=== PATIENT | female | born 1950 | race Caucasian/White ===

== ENCOUNTER 2021-08-30 04:55 | Day surgery (SDC) | payer OTHER ==
[2021-08-25 12:25] VITALS: BMI 32.8
[2021-08-30] MEDS ORDERED: MIDAZOLAM HCL 2 MG/2 ML SINGLE DOSE VIAL ONE (09:03)
[2021-08-30] MEDS ORDERED: FENTANYL CITRATE/PF 50 MCG/ML VIAL ONE (09:03)
[2021-08-30] MEDS ORDERED: ACETAMINOPHEN 325 MG TABLET (FP) ONE (11:04)
[2021-08-30 13:17] VITALS: BP 143/71; PULSE 67; TEMP 98.8
== END 2021-08-30 13:10 | disposition home or self-care (01) ==
LOC: JRADIR 04:55
PROVIDERS: ATTEND Internal Medicine Hematology & Oncology
PROC: 02HV33Z Insertion of Infusion Device into Superior Vena Cava, Percutaneous Approach (ICD-10-PCS; principal; 2021-08-30)
PROC: B548ZZA Ultrasonography of Superior Vena Cava, Guidance (ICD-10-PCS; 2021-08-30)
DX: C81.90 Hodgkin lymphoma, unspecified, unspecified site (principal)
CPT/HCPCS: 36561; C1788; 77001-TC-FY; 82962

== ENCOUNTER 2021-08-31 07:26 | Day surgery (SDC) | payer OTHER ==
[2021-08-31] MEDS ORDERED: SODIUM CHLORIDE 250 ML IV ONE (09:30)
[2021-08-31] MEDS ORDERED: ACETAMINOPHEN 325 MG TABLET (FP) PO ONE (10:00)
[2021-08-31] MEDS ORDERED: FOSAPREPITANT DIMEGLUMINE 150 MG in SODIUM CHLORIDE 145 ML IVPB ONE (10:00)
[2021-08-31] MEDS ORDERED: diphenhydrAMINE HCL 25 MG CAPSULE (FP) PO ONE (10:00)
[2021-08-31] MEDS ORDERED: PALONOSETRON HCL 0.25 MG/5 ML VIAL IVPUSH ONE (10:00)
[2021-08-31] MEDS ORDERED: BLEOMYCIN SULFATE 15 UNIT VIAL ID ONE (10:00)
[2021-08-31] MEDS ORDERED: DEXAMETHASONE SODIUM PHOSPHATE 10 MG in SODIUM CHLORIDE 50 ML IVPB ONE (10:00)
[2021-08-31] MEDS ORDERED: DOXOrubicin HCL 50 MG/25 ML VIAL IV ONE (10:30)
[2021-08-31] MEDS ORDERED: BLEOMYCIN SULFATE 17 UNIT in SODIUM CHLORIDE 50 ML IVPB ONE (11:00)
[2021-08-31] MEDS ORDERED: VINBLASTINE SULFATE IVPB ONE (11:15)
[2021-08-31] MEDS ORDERED: SODIUM CHLORIDE IVPB ONE (11:15)
[2021-08-31] MEDS ORDERED: DACARBAZINE IVPB ONE (11:30)
[2021-08-31] MEDS ORDERED: WATER IVPB ONE (11:30)
[2021-08-31] MEDS ORDERED: DEXTROSE 5% IVPB ONE (11:30)
[2021-08-31] MEDS ORDERED: BLEOMYCIN SULFATE 15 UNIT VIAL SQ ONE (12:00)
[2021-08-31 12:55] LABS: BASO % 0.3 % (0-2.0); EOS % 1.5 % (0-4.5); HEMATOCRIT 37.2 % (32.4-45.2); HEMOGLOBIN 12.7 GM/dL (10.7-15.3); LYMPH % 11.8 % (8-40); MCH 30.2 pg (25.7-33.7); MCHC 34.2 g/dl (32.0-36.0); MEAN CELL VOLUME 88.3 fl (80-96); MEAN PLT VOLUME 8.9 fl (7.5-11.1); MONO % 3.3 % (3.8-10.2); NEUT % 83.1 % (42.8-82.8); PLATELET COUNT 227 10^3/uL (134-434); RBC 4.22 M/mm3 (3.60-5.2); RDW 13.3 % (11.6-15.6); WHITE BLOOD COUNT 7.1 K/mm3 (4.0-10.0)
[2021-08-31 13:13] LABS: CALCIUM 9.2 mg/dL (8.5-10.1)
[2021-08-31 13:14] LABS: ALBUMIN 3.8 g/dl (3.4-5.0); BLOOD UREA NITROGEN 14.6 mg/dL (7-18)
[2021-08-31 13:16] LABS: CREATININE 0.7 mg/dL (0.55-1.3); URIC ACID 5.4 mg/dL (2.6-7.2)
[2021-08-31 13:18] LABS: BILIRUBIN,TOTAL 0.5 mg/dL (0.2-1); TOT PROT 6.6 g/dl (6.4-8.2)
[2021-08-31 17:20] VITALS: TEMP 97.7
[2021-08-31] MEDS ORDERED: PORTA CATH FLUSH 10 ML IVPUSH PRN (17:44)
[2021-08-31 17:55] VITALS: BP 176/70; PULSE 63
== END 2021-08-31 16:00 | disposition home or self-care (01) ==
LOC: JONCCHEMO 07:26
PROVIDERS: ATTEND Internal Medicine Hematology & Oncology
PROC: 3E04305 Introduction of Other Antineoplastic into Central Vein, Percutaneous Approach (ICD-10-PCS; principal; 2021-08-31)
PROC: 3E01305 Introduction of Other Antineoplastic into Subcutaneous Tissue, Percutaneous Approach (ICD-10-PCS; 2021-08-31)
PROC: 3E043GC Introduction of Other Therapeutic Substance into Central Vein, Percutaneous Approach (ICD-10-PCS; 2021-08-31)
PROC: 3E0437Z Introduction of Electrolytic and Water Balance Substance into Central Vein, Percutaneous Approach (ICD-10-PCS; 2021-08-31)
PROC: 3E0337Z Introduction of Electrolytic and Water Balance Substance into Peripheral Vein, Percutaneous Approach (ICD-10-PCS; 2021-08-31)
DX: Z51.11 Encounter for antineoplastic chemotherapy (principal); C81.90 Hodgkin lymphoma, unspecified, unspecified site
CPT/HCPCS: 36415; 80053; 83615; 84550; 85025; 96367; 96375; 96402; 96411; 96413; J1453; J2469; J9040; J9130

== ENCOUNTER 2021-09-01 08:16 | Day surgery (SDC) | payer OTHER ==
[2021-09-01] MEDS ORDERED: PEGFILGRASTIM-CBQV (UDENYCA) 6 MG/0.6 ML SYRINGE SQ ONE (10:00)
[2021-09-01] MEDS ORDERED: D5-1/2NS+40 MEQ KCL - 20 MEQ/500 ML INFUS.BAG IV ONE (10:00)
[2021-09-01] MEDS ORDERED: MAGNESIUM 1GM/D5W - 1 GM/100 ML IVPB IVPB ONE (10:00)
[2021-09-01 16:48] VITALS: BP 163/68; PULSE 61; TEMP 97.7
[2021-09-01] MEDS ORDERED: PORTA CATH FLUSH 10 ML IVPUSH PRN (16:48)
== END 2021-09-01 16:00 | disposition home or self-care (01) ==
LOC: JONCCHEMO 08:16
PROVIDERS: ATTEND Internal Medicine Hematology & Oncology
PROC: 3E033GC Introduction of Other Therapeutic Substance into Peripheral Vein, Percutaneous Approach (ICD-10-PCS; principal; 2021-09-01)
PROC: 3E0337Z Introduction of Electrolytic and Water Balance Substance into Peripheral Vein, Percutaneous Approach (ICD-10-PCS; 2021-09-01)
PROC: 3E013GC Introduction of Other Therapeutic Substance into Subcutaneous Tissue, Percutaneous Approach (ICD-10-PCS; 2021-09-01)
DX: Z76.89 Persons encountering health services in other specified circumstances (principal); C81.90 Hodgkin lymphoma, unspecified, unspecified site
CPT/HCPCS: 96361; 96365; 96372; Q5111

== ENCOUNTER 2021-09-14 07:28 | Day surgery (SDC) | payer OTHER ==
[2021-09-14] MEDS ORDERED: SODIUM CHLORIDE 250 ML IV ONE (09:00)
[2021-09-14] MEDS ORDERED: diphenhydrAMINE HCL 25 MG CAPSULE (FP) PO ONE (09:30)
[2021-09-14] MEDS ORDERED: DEXAMETHASONE SODIUM PHOSPHATE 8 MG in SODIUM CHLORIDE 50 ML IVPB ONE (09:30)
[2021-09-14] MEDS ORDERED: FOSAPREPITANT DIMEGLUMINE 150 MG in SODIUM CHLORIDE 145 ML IVPB ONE (09:30)
[2021-09-14] MEDS ORDERED: PALONOSETRON HCL 0.25 MG/5 ML VIAL IVPUSH ONE (09:30)
[2021-09-14] MEDS ORDERED: ACETAMINOPHEN 325 MG TABLET (FP) PO ONE (09:30)
[2021-09-14] MEDS ORDERED: DOXOrubicin HCL 50 MG/25 ML VIAL IV ONE (10:00)
[2021-09-14] MEDS ORDERED: BLEOMYCIN SULFATE IVPB ONE (10:15)
[2021-09-14] MEDS ORDERED: SODIUM CHLORIDE IVPB ONE ×2 (10:15→10:30)
[2021-09-14] MEDS ORDERED: VINBLASTINE SULFATE IVPB ONE (10:30)
[2021-09-14] MEDS ORDERED: DACARBAZINE IVPB ONE (10:45)
[2021-09-14] MEDS ORDERED: DEXTROSE 5% IVPB ONE (10:45)
[2021-09-14] MEDS ORDERED: WATER IVPB ONE (10:45)
[2021-09-14 17:25] VITALS: TEMP 98.2
[2021-09-14 17:30] VITALS: BP 145/65; PULSE 69
[2021-09-14] MEDS ORDERED: PORTA CATH FLUSH 10 ML IVPUSH PRN (17:30)
== END 2021-09-14 15:10 | disposition home or self-care (01) ==
LOC: JONCCHEMO 07:28
PROVIDERS: ATTEND Internal Medicine Hematology & Oncology
DX: Z51.11 Encounter for antineoplastic chemotherapy (principal); C81.90 Hodgkin lymphoma, unspecified, unspecified site
CPT/HCPCS: 36415; 83735; 96367; 96375; 96411; 96413; J1453; J2469; J9040; J9130

== ENCOUNTER 2021-09-15 07:50 | Day surgery (SDC) | payer OTHER ==
[2021-09-15] MEDS ORDERED: D5-1/2NS+40 MEQ KCL - 20 MEQ/500 ML INFUS.BAG IV ONE (09:00)
[2021-09-15] MEDS ORDERED: PEGFILGRASTIM-CBQV (UDENYCA) 6 MG/0.6 ML SYRINGE SQ ONE (10:00)
[2021-09-15] MEDS ORDERED: MAGNESIUM 1GM/D5W - 1 GM/100 ML IVPB IVPB ONE (10:00)
[2021-09-15] MEDS ORDERED: POTASSIUM CHLORIDE 20 MEQ, MAGNESIUM SULFATE 1 GM in DEXTROSE 5%-0.45% SALINE - 500 ML IV ONE (10:00)
[2021-09-15 16:55] VITALS: TEMP 97.9
[2021-09-15] MEDS ORDERED: PORTA CATH FLUSH 10 ML IVPUSH PRN (16:55)
[2021-09-15 19:03] VITALS: BP 143/69; PULSE 67
== END 2021-09-15 17:40 | disposition home or self-care (01) ==
LOC: JONCCHEMO 07:50
PROVIDERS: ATTEND Internal Medicine Hematology & Oncology
PROC: 3E043GC Introduction of Other Therapeutic Substance into Central Vein, Percutaneous Approach (ICD-10-PCS; principal; 2021-09-15)
PROC: 3E013GC Introduction of Other Therapeutic Substance into Subcutaneous Tissue, Percutaneous Approach (ICD-10-PCS; 2021-09-15)
DX: C81.90 Hodgkin lymphoma, unspecified, unspecified site (principal); Z76.89 Persons encountering health services in other specified circumstances
CPT/HCPCS: 96361; 96365; 96372; Q5111

== ENCOUNTER → 2021-09-28 | Day surgery (SDC) | payer OTHER ==
[~2021-09-28] MED LIST: ACETAMINOPHEN 325 MG TABLET (FP) PO ONE; BLEOMYCIN SULFATE IVPB ONE; DACARBAZINE IVPB ONE; DEXAMETHASONE SODIUM PHOSPHATE 8 MG in SODIUM CHLORIDE 50 ML IVPB ONE; DEXTROSE 5% IVPB ONE; DOXOrubicin HCL 50 MG/25 ML VIAL IV ONE; FOSAPREPITANT DIMEGLUMINE 150 MG in SODIUM CHLORIDE 145 ML IVPB ONE; INSULIN (NOVOLOG) ASPART 100 UNITS/ML 10ML VIAL SQ ONE; MAGNESIUM 1GM/D5W - 1 GM/100 ML IVPB IVPB ONE; MAGNESIUM SULF 50% (8.12 MEQ/2 ML-1 GM VIAL) IVPB ONE; PALONOSETRON HCL 0.25 MG/5 ML VIAL IVPUSH ONE; PORTA CATH FLUSH 10 ML IVPUSH PRN; SODIUM CHLORIDE 250 ML IV ONE; SODIUM CHLORIDE IVPB ONE; VINBLASTINE SULFATE IVPB ONE; WATER IVPB ONE; diphenhydrAMINE HCL 25 MG CAPSULE (FP) PO ONE
[2021-09-28 10:51] LABS: HEMATOCRIT 35.6 % (32.4-45.2); HEMOGLOBIN 12.1 GM/dL (10.7-15.3); MCH 29.6 pg (25.7-33.7); MEAN PLT VOLUME 8.4 fl (7.5-11.1); PLATELET COUNT 220 10^3/uL (134-434); RBC 4.09 M/mm3 (3.60-5.2); RDW 13.7 % (11.6-15.6); WHITE BLOOD COUNT 12.9 K/mm3 (4.0-10.0)
[2021-09-28 11:23] LABS: CALCIUM 9.4 mg/dL (8.5-10.1)
[2021-09-28 11:24] LABS: ALBUMIN 3.9 g/dl (3.4-5.0); BLOOD UREA NITROGEN 15.6 mg/dL (7-18); MAGNESIUM 1.7 mg/dL (1.8-2.4)
[2021-09-28 11:26] LABS: BILIRUBIN,DIRECT 0.1 mg/dL (0.0-0.2)
[2021-09-28 11:27] LABS: CREATININE 0.8 mg/dL (0.55-1.3)
[2021-09-28 11:28] LABS: TOT PROT 6.7 g/dl (6.4-8.2)
[2021-09-28 11:29] LABS: BILIRUBIN,TOTAL 0.3 mg/dL (0.2-1)
[2021-09-28 11:44] LABS: ANISOCYTOSIS 0; MACROCYTOSIS 0
[2021-09-28 19:05] VITALS: TEMP 97.8
[2021-09-28 19:13] VITALS: BP 129/62; PULSE 71; RESP 20
== END | disposition home or self-care (01) ==
LOC: JONCCHEMO 06:17
PROVIDERS: ATTEND Internal Medicine Hematology & Oncology
DX: Z51.11 Encounter for antineoplastic chemotherapy (principal); C81.90 Hodgkin lymphoma, unspecified, unspecified site; I10 Essential (primary) hypertension; E61.2 Magnesium deficiency
CPT/HCPCS: 36415; 80048; 80076; 83615; 83735; 84550; 85025; 96366; 96367; 96375; 96411; 96413; J1453; J2469; J9040; J9130

== ENCOUNTER 2021-09-29 06:56 | Day surgery (SDC) | payer OTHER ==
[2021-09-29] MEDS ORDERED: D5-1/2NS+40 MEQ KCL - 20 MEQ/500 ML INFUS.BAG IV ONE (09:00)
[2021-09-29] MEDS ORDERED: PEGFILGRASTIM-CBQV (UDENYCA) 6 MG/0.6 ML SYRINGE SQ ONE (10:00)
[2021-09-29] MEDS ORDERED: MAGNESIUM 1GM/D5W - 1 GM/100 ML IVPB IVPB ONE (10:00)
[2021-09-29 15:25] VITALS: RESP 18; TEMP 98.6
[2021-09-29] MEDS ORDERED: PORTA CATH FLUSH 10 ML IVPUSH PRN (15:27)
[2021-09-29 15:36] VITALS: BP 147/68; PULSE 64
== END 2021-09-29 15:30 | disposition home or self-care (01) ==
LOC: JONCCHEMO 06:56
PROVIDERS: ATTEND Internal Medicine Hematology & Oncology
PROC: 3E043GC Introduction of Other Therapeutic Substance into Central Vein, Percutaneous Approach (ICD-10-PCS; principal; 2021-09-29)
DX: C81.90 Hodgkin lymphoma, unspecified, unspecified site (principal); I10 Essential (primary) hypertension; E61.2 Magnesium deficiency; Z76.89 Persons encountering health services in other specified circumstances
CPT/HCPCS: 96365; 96372; Q5111

== ENCOUNTER 2021-10-12 06:27 | Day surgery (SDC) | payer OTHER ==
[2021-10-12] MEDS ORDERED: diphenhydrAMINE HCL 25 MG CAPSULE (FP) PO ONE (10:00)
[2021-10-12] MEDS ORDERED: DEXAMETHASONE SODIUM PHOSPHATE 6 MG in SODIUM CHLORIDE 50 ML IVPB ONE (10:00)
[2021-10-12] MEDS ORDERED: SODIUM CHLORIDE 250 ML IV ONE (10:00)
[2021-10-12] MEDS ORDERED: ACETAMINOPHEN 325 MG TABLET (FP) PO ONE (10:00)
[2021-10-12] MEDS ORDERED: FOSAPREPITANT DIMEGLUMINE 150 MG in SODIUM CHLORIDE 145 ML IVPB ONE (10:00)
[2021-10-12] MEDS ORDERED: PALONOSETRON HCL 0.25 MG/5 ML VIAL IVPUSH ONE (10:00)
[2021-10-12] MEDS ORDERED: DOXOrubicin HCL 50 MG/25 ML VIAL IV ONE (10:30)
[2021-10-12] MEDS ORDERED: BLEOMYCIN SULFATE IVPB ONE (11:00)
[2021-10-12] MEDS ORDERED: SODIUM CHLORIDE IVPB ONE ×2 (11:00→11:15)
[2021-10-12] MEDS ORDERED: VINBLASTINE SULFATE IVPB ONE (11:15)
[2021-10-12 11:17] LABS: HEMATOCRIT 33.8 % (32.4-45.2); HEMOGLOBIN 11.6 GM/dL (10.7-15.3); MCH 29.8 pg (25.7-33.7); MCHC 34.4 g/dl (32.0-36.0); MEAN CELL VOLUME 86.8 fl (80-96); MEAN PLT VOLUME 8.4 fl (7.5-11.1); PLATELET COUNT 267 10^3/uL (134-434); RDW 14.1 % (11.6-15.6); WHITE BLOOD COUNT 16.1 K/mm3 (4.0-10.0)
[2021-10-12 11:30] LABS: CALCIUM 9.5 mg/dL (8.5-10.1); MAGNESIUM 1.4 mg/dL (1.8-2.4)
[2021-10-12] MEDS ORDERED: DACARBAZINE IVPB ONE (11:30)
[2021-10-12] MEDS ORDERED: DEXTROSE 5% IVPB ONE (11:30)
[2021-10-12] MEDS ORDERED: WATER IVPB ONE (11:30)
[2021-10-12 11:32] LABS: ALBUMIN 3.8 g/dl (3.4-5.0); BLOOD UREA NITROGEN 14.4 mg/dL (7-18)
[2021-10-12 11:34] LABS: BILIRUBIN,DIRECT 0.1 mg/dL (0.0-0.2); CREATININE 0.8 mg/dL (0.55-1.3); URIC ACID 5.7 mg/dL (2.6-7.2)
[2021-10-12 11:36] LABS: TOT PROT 6.6 g/dl (6.4-8.2)
[2021-10-12 11:37] LABS: BILIRUBIN,TOTAL 0.2 mg/dL (0.2-1)
[2021-10-12] MEDS ORDERED: MAGNESIUM SULF 50% (8.12 MEQ/2 ML-1 GM VIAL) IVPB ONE (11:41)
[2021-10-12] MEDS ORDERED: MAGNESIUM SULFATE IN WATER 2 GM/50 ML IVPB IVPB ONE (12:00)
[2021-10-12 12:34] LABS: ANISOCYTOSIS 0; MACROCYTOSIS 0
[2021-10-12 17:23] VITALS: RESP 18; TEMP 98.2
[2021-10-12] MEDS ORDERED: PORTA CATH FLUSH 10 ML IVPUSH PRN (17:43)
[2021-10-12 17:44] VITALS: BP 129/90; PULSE 75
== END 2021-10-12 17:40 | disposition home or self-care (01) ==
LOC: JONCCHEMO 06:27
PROVIDERS: ATTEND Internal Medicine Hematology & Oncology
DX: Z51.11 Encounter for antineoplastic chemotherapy (principal); C81.90 Hodgkin lymphoma, unspecified, unspecified site
CPT/HCPCS: 36415; 80048; 80076; 83615; 83735; 84550; 85025; 96367; 96375; 96411; 96413; J1453; J2469; J9040; J9130

== ENCOUNTER 2021-10-13 07:55 | Day surgery (SDC) | payer OTHER ==
[2021-10-13] MEDS ORDERED: POTASSIUM CHLORIDE 20 MEQ, MAGNESIUM SULFATE 1 GM in DEXTROSE 5%-0.45% SALINE - 500 ML IVPB ONE (10:00)
[2021-10-13] MEDS ORDERED: D5-1/2NS+40 MEQ KCL - 20 MEQ/500 ML INFUS.BAG IV ONE (10:00)
[2021-10-13] MEDS ORDERED: MAGNESIUM 1GM/D5W - 1 GM/100 ML IVPB IVPB ONE (10:00)
[2021-10-13 17:02] VITALS: TEMP 97.8
[2021-10-13] MEDS ORDERED: PORTA CATH FLUSH 10 ML IVPUSH PRN (17:02)
[2021-10-13 17:09] VITALS: BP 166/82; PULSE 70; RESP 20
== END 2021-10-13 11:45 | disposition home or self-care (01) ==
LOC: JONCCHEMO 07:55
PROVIDERS: ATTEND Internal Medicine Hematology & Oncology
PROC: 3E043GC Introduction of Other Therapeutic Substance into Central Vein, Percutaneous Approach (ICD-10-PCS; principal; 2021-10-13)
DX: C81.90 Hodgkin lymphoma, unspecified, unspecified site (principal); Z76.89 Persons encountering health services in other specified circumstances
CPT/HCPCS: 96361; 96365

== ENCOUNTER 2021-10-21 09:38 | Day surgery (SDC) | payer OTHER ==
[2021-10-21] MEDS ORDERED: MAGNESIUM SULFATE IN WATER 2 GM/50 ML IVPB IVPB ONE (12:00)
[2021-10-21 12:04] LABS: BLOOD UREA NITROGEN 19.3 mg/dL (7-18); CALCIUM 9.2 mg/dL (8.5-10.1); MAGNESIUM 1.4 mg/dL (1.8-2.4)
[2021-10-21 12:08] LABS: BILIRUBIN,TOTAL 0.4 mg/dL (0.2-1); CREATININE 0.9 mg/dL (0.55-1.3); TOT PROT 6.7 g/dl (6.4-8.2)
[2021-10-21 15:31] VITALS: BP 106/53; PULSE 72; RESP 18; TEMP 98.1
[2021-10-21] MEDS ORDERED: PORTA CATH FLUSH 10 ML IVPUSH PRN (15:31)
== END 2021-10-21 13:20 | disposition home or self-care (01) ==
LOC: JONCNONCHE 09:38
PROVIDERS: ATTEND Internal Medicine Hematology & Oncology
PROC: 3E043GC Introduction of Other Therapeutic Substance into Central Vein, Percutaneous Approach (ICD-10-PCS; principal; 2021-10-21)
DX: C81.90 Hodgkin lymphoma, unspecified, unspecified site (principal); Z76.89 Persons encountering health services in other specified circumstances
CPT/HCPCS: 36415; 80053; 83735; 96365

== ENCOUNTER 2021-11-16 06:41 | Day surgery (SDC) | payer OTHER ==
[2021-11-16] MEDS ORDERED: SODIUM CHLORIDE 250 ML IV ONE (09:00)
[2021-11-16] MEDS ORDERED: PALONOSETRON HCL 0.25 MG/5 ML VIAL IVPUSH ONE (09:30)
[2021-11-16] MEDS ORDERED: FOSAPREPITANT DIMEGLUMINE 150 MG in SODIUM CHLORIDE 145 ML IVPB ONE (09:30)
[2021-11-16] MEDS ORDERED: ACETAMINOPHEN 325 MG TABLET (FP) PO ONE (09:30)
[2021-11-16] MEDS ORDERED: DEXAMETHASONE SODIUM PHOSPHATE 6 MG in SODIUM CHLORIDE 50 ML IVPB ONE (09:30)
[2021-11-16] MEDS ORDERED: diphenhydrAMINE HCL 25 MG CAPSULE (FP) PO ONE (09:30)
[2021-11-16] MEDS ORDERED: MAGNESIUM SULF 50% (8.12 MEQ/2 ML-1 GM VIAL) IVPB ONE (09:32)
[2021-11-16] MEDS ORDERED: DOXOrubicin HCL 50 MG/25 ML VIAL IV ONE (10:00)
[2021-11-16] MEDS ORDERED: SODIUM CHLORIDE IVPB ONE ×2 (10:15→10:30)
[2021-11-16] MEDS ORDERED: BLEOMYCIN SULFATE IVPB ONE (10:15)
[2021-11-16 10:17] LABS: BASO % 0.7 % (0-2.0); EOS % 3.8 % (0-4.5); HEMATOCRIT 37.1 % (32.4-45.2); HEMOGLOBIN 12.5 GM/dL (10.7-15.3); LYMPH % 20.9 % (8-40); MCH 30.1 pg (25.7-33.7); MCHC 33.6 g/dl (32.0-36.0); MEAN CELL VOLUME 89.4 fl (80-96); MEAN PLT VOLUME 8.5 fl (7.5-11.1); MONO % 10.5 % (3.8-10.2); NEUT % 64.1 % (42.8-82.8); PLATELET COUNT 253 10^3/uL (134-434); RBC 4.16 M/mm3 (3.60-5.2); RDW 15.6 % (11.6-15.6); WHITE BLOOD COUNT 6.3 K/mm3 (4.0-10.0)
[2021-11-16 10:21] VITALS: RESP 18; TEMP 98.2
[2021-11-16] MEDS ORDERED: MAGNESIUM SULFATE IN WATER 2 GM/50 ML IVPB IVPB ONE (10:30)
[2021-11-16] MEDS ORDERED: VINBLASTINE SULFATE IVPB ONE (10:30)
[2021-11-16] MEDS ORDERED: PORTA CATH FLUSH 10 ML IVPUSH PRN (10:34)
[2021-11-16] MEDS ORDERED: WATER IVPB ONE (10:45)
[2021-11-16] MEDS ORDERED: DEXTROSE 5% IVPB ONE (10:45)
[2021-11-16] MEDS ORDERED: DACARBAZINE IVPB ONE (10:45)
[2021-11-16 10:52] LABS: CALCIUM 10.4 mg/dL (8.5-10.1)
[2021-11-16 10:53] LABS: MAGNESIUM 1.7 mg/dL (1.8-2.4)
[2021-11-16 10:55] LABS: BILIRUBIN,DIRECT 0.1 mg/dL (0.0-0.2); URIC ACID 4.5 mg/dL (2.6-7.2)
[2021-11-16 10:57] LABS: BILIRUBIN,TOTAL 0.5 mg/dL (0.2-1)
[2021-11-16 15:55] VITALS: BP 129/62; PULSE 68
== END 2021-11-16 14:45 | disposition home or self-care (01) ==
LOC: JONCCHEMO 06:41
PROVIDERS: ATTEND Internal Medicine Hematology & Oncology
DX: Z51.11 Encounter for antineoplastic chemotherapy (principal); C81.90 Hodgkin lymphoma, unspecified, unspecified site
CPT/HCPCS: 36415; 80048; 80076; 83615; 83735; 84550; 85025; 96367; 96375; 96411; 96413; J1453; J2469; J9040; J9130

== ENCOUNTER → 2021-11-17 | Day surgery (SDC) | payer OTHER ==
[~2021-11-17] MED LIST changes: -ACETAMINOPHEN 325 MG TABLET (FP) PO ONE; -BLEOMYCIN SULFATE IVPB ONE; +D5-1/2NS+40 MEQ KCL - 20 MEQ/500 ML INFUS.BAG IV ONE; -DACARBAZINE IVPB ONE; -DEXAMETHASONE SODIUM PHOSPHATE 8 MG in SODIUM CHLORIDE 50 ML IVPB ONE; -DEXTROSE 5% IVPB ONE; -DOXOrubicin HCL 50 MG/25 ML VIAL IV ONE; -FOSAPREPITANT DIMEGLUMINE 150 MG in SODIUM CHLORIDE 145 ML IVPB ONE; -INSULIN (NOVOLOG) ASPART 100 UNITS/ML 10ML VIAL SQ ONE; -MAGNESIUM 1GM/D5W - 1 GM/100 ML IVPB IVPB ONE; -MAGNESIUM SULF 50% (8.12 MEQ/2 ML-1 GM VIAL) IVPB ONE; +MAGNESIUM SULFATE IN WATER 2 GM/50 ML IVPB IVPB ONE; -PALONOSETRON HCL 0.25 MG/5 ML VIAL IVPUSH ONE; -SODIUM CHLORIDE 250 ML IV ONE; -SODIUM CHLORIDE IVPB ONE; -VINBLASTINE SULFATE IVPB ONE; -WATER IVPB ONE; -diphenhydrAMINE HCL 25 MG CAPSULE (FP) PO ONE
[2021-11-17 14:30] VITALS: BP 151/69; PULSE 69; RESP 20; TEMP 98
== END | disposition home or self-care (01) ==
LOC: JONCCHEMO 09:06
PROVIDERS: ATTEND Internal Medicine Hematology & Oncology
PROC: 3E043GC Introduction of Other Therapeutic Substance into Central Vein, Percutaneous Approach (ICD-10-PCS; principal; 2021-11-17)
DX: C81.90 Hodgkin lymphoma, unspecified, unspecified site (principal); Z76.89 Persons encountering health services in other specified circumstances
CPT/HCPCS: 96361; 96365

== ENCOUNTER 2021-11-30 10:10 | Day surgery (SDC) | payer OTHER ==
[~2021-11-30 10:10] MED LIST changes: +ACETAMINOPHEN 325 MG TABLET (FP) PO ONE; -D5-1/2NS+40 MEQ KCL - 20 MEQ/500 ML INFUS.BAG IV ONE; +DEXAMETHASONE SODIUM PHOSPHATE 6 MG in SODIUM CHLORIDE 50 ML IVPB ONE; +FOSAPREPITANT DIMEGLUMINE 150 MG in SODIUM CHLORIDE 145 ML IVPB ONE; +PALONOSETRON HCL 0.25 MG/5 ML VIAL IVPUSH ONE; -PORTA CATH FLUSH 10 ML IVPUSH PRN; +SODIUM CHLORIDE 250 ML IV ONE; +TBO-FILGRASTIM 480 MCG/0.8 ML DISP.SYRIN SQ ONE; +diphenhydrAMINE HCL 25 MG CAPSULE (FP) PO ONE
[2021-11-30] MEDS ORDERED: MAGNESIUM 2GM/50ML STERILE WATER IVPB IVPB ONE (10:30)
[2021-11-30] MEDS ORDERED: DOXOrubicin HCL 50 MG/25 ML VIAL IV ONE (10:30)
[2021-11-30 10:35] LABS: HEMATOCRIT 34.1 % (32.4-45.2); HEMOGLOBIN 11.6 GM/dL (10.7-15.3); MCH 30.3 pg (25.7-33.7); MCHC 33.9 g/dl (32.0-36.0); MEAN CELL VOLUME 89.2 fl (80-96); MEAN PLT VOLUME 7.6 fl (7.5-11.1); PLATELET COUNT 347 10^3/uL (134-434); RBC 3.82 M/mm3 (3.60-5.2); RDW 15.1 % (11.6-15.6)
[2021-11-30 10:56] LABS: WHITE BLOOD COUNT 1.9 K/mm3 (4.0-10.0)
[2021-11-30] MEDS ORDERED: BLEOMYCIN SULFATE IVPB ONE (11:00)
[2021-11-30] MEDS ORDERED: SODIUM CHLORIDE IVPB ONE ×2 (11:00→11:15)
[2021-11-30 11:02] LABS: ALBUMIN 3.9 g/dl (3.4-5.0); BLOOD UREA NITROGEN 16.3 mg/dL (7-18)
[2021-11-30 11:03] LABS: MAGNESIUM 1.7 mg/dL (1.8-2.4)
[2021-11-30 11:05] LABS: BILIRUBIN,DIRECT 0.1 mg/dL (0.0-0.2); CREATININE 0.8 mg/dL (0.55-1.3); URIC ACID 3.7 mg/dL (2.6-7.2)
[2021-11-30 11:07] LABS: BILIRUBIN,TOTAL 0.4 mg/dL (0.2-1); TOT PROT 6.8 g/dl (6.4-8.2)
[2021-11-30 11:10] LABS: ANISOCYTOSIS 0; HELMET CELLS 0; HOWELL-JOLLY BODIES 0; MACROCYTOSIS 0; OVALOCYTE 0; ROULEAU 0; SICKELED CELLS 0; TARGET CELLS 0; TEAR DROP CELLS 0; TOXIC GRANULATION 0
[2021-11-30] MEDS ORDERED: VINBLASTINE SULFATE IVPB ONE (11:15)
[2021-11-30] MEDS ORDERED: DEXTROSE 5% IVPB ONE (11:30)
[2021-11-30] MEDS ORDERED: WATER IVPB ONE (11:30)
[2021-11-30] MEDS ORDERED: DACARBAZINE IVPB ONE (11:30)
[2021-11-30 17:40] VITALS: RESP 18; TEMP 98.1
[2021-11-30 17:50] VITALS: BP 120/59; PULSE 65
[2021-11-30] MEDS ORDERED: PORTA CATH FLUSH 10 ML IVPUSH PRN (17:50)
== END 2021-11-30 12:00 | disposition home or self-care (01) ==
LOC: JONCCHEMO 10:10
PROVIDERS: ATTEND Internal Medicine Hematology & Oncology
PROC: 3E043GC Introduction of Other Therapeutic Substance into Central Vein, Percutaneous Approach (ICD-10-PCS; principal; 2021-11-30)
PROC: 3E013GC Introduction of Other Therapeutic Substance into Subcutaneous Tissue, Percutaneous Approach (ICD-10-PCS; 2021-11-30)
DX: C81.90 Hodgkin lymphoma, unspecified, unspecified site (principal)
CPT/HCPCS: 36415; 80048; 80076; 83615; 83735; 84550; 85025; 96365; 96372; J1447

== ENCOUNTER 2021-12-01 09:46 | Day surgery (SDC) | payer OTHER ==
[~2021-12-01 09:46] MED LIST changes: -ACETAMINOPHEN 325 MG TABLET (FP) PO ONE; -DEXAMETHASONE SODIUM PHOSPHATE 6 MG in SODIUM CHLORIDE 50 ML IVPB ONE; -FOSAPREPITANT DIMEGLUMINE 150 MG in SODIUM CHLORIDE 145 ML IVPB ONE; +MAGNESIUM SULF 50% (8.12 MEQ/2 ML-1 GM VIAL) IVPB ONE; -MAGNESIUM SULFATE IN WATER 2 GM/50 ML IVPB IVPB ONE; -PALONOSETRON HCL 0.25 MG/5 ML VIAL IVPUSH ONE; -SODIUM CHLORIDE 250 ML IV ONE; -TBO-FILGRASTIM 480 MCG/0.8 ML DISP.SYRIN SQ ONE; -diphenhydrAMINE HCL 25 MG CAPSULE (FP) PO ONE
[2021-12-01] MEDS ORDERED: MAGNESIUM SULFATE IN WATER 2 GM/50 ML IVPB IVPB ONE (10:00)
[2021-12-01] MEDS ORDERED: TBO-FILGRASTIM 480 MCG/0.8 ML DISP.SYRIN SQ ONE (10:00)
[2021-12-01 16:18] VITALS: RESP 18; TEMP 98
[2021-12-01] MEDS ORDERED: PORTA CATH FLUSH 10 ML IVPUSH PRN (16:21)
[2021-12-01 16:22] VITALS: BP 115/58; PULSE 63
== END 2021-12-01 12:00 | disposition home or self-care (01) ==
LOC: JONCCHEMO 09:46
PROVIDERS: ATTEND Internal Medicine Hematology & Oncology
PROC: 3E013GC Introduction of Other Therapeutic Substance into Subcutaneous Tissue, Percutaneous Approach (ICD-10-PCS; principal; 2021-12-01)
PROC: 3E043GC Introduction of Other Therapeutic Substance into Central Vein, Percutaneous Approach (ICD-10-PCS; 2021-12-01)
DX: C81.90 Hodgkin lymphoma, unspecified, unspecified site (principal); Z76.89 Persons encountering health services in other specified circumstances
CPT/HCPCS: 96365; 96372; J1447

== ENCOUNTER 2021-12-06 08:34 | Day surgery (SDC) | payer OTHER ==
[2021-12-06] MEDS ORDERED: MAGNESIUM SULFATE IN WATER 2 GM/50 ML IVPB IVPB ONE (09:00)
[2021-12-06 09:16] LABS: HEMATOCRIT 34.1 % (32.4-45.2); HEMOGLOBIN 11.3 GM/dL (10.7-15.3); MCH 29.7 pg (25.7-33.7); MCHC 33.3 g/dl (32.0-36.0); MEAN CELL VOLUME 89.4 fl (80-96); MEAN PLT VOLUME 8.3 fl (7.5-11.1); PLATELET COUNT 307 10^3/uL (134-434); RBC 3.81 M/mm3 (3.60-5.2); RDW 15.1 % (11.6-15.6); WHITE BLOOD COUNT 9.4 K/mm3 (4.0-10.0)
[2021-12-06 09:28] LABS: CALCIUM 9.2 mg/dL (8.5-10.1)
[2021-12-06 09:29] LABS: ALBUMIN 3.6 g/dl (3.4-5.0); BLOOD UREA NITROGEN 16.5 mg/dL (7-18); MAGNESIUM 1.5 mg/dL (1.8-2.4)
[2021-12-06] MEDS ORDERED: SODIUM CHLORIDE 250 ML IV ONE (09:30)
[2021-12-06 09:32] LABS: BILIRUBIN,DIRECT 0.1 mg/dL (0.0-0.2); BILIRUBIN,TOTAL 0.3 mg/dL (0.2-1); CREATININE 0.8 mg/dL (0.55-1.3); TOT PROT 6.6 g/dl (6.4-8.2); URIC ACID 4.5 mg/dL (2.6-7.2)
[2021-12-06] MEDS ORDERED: DEXAMETHASONE SODIUM PHOSPHATE 6 MG in SODIUM CHLORIDE 50 ML IVPB ONE (10:00)
[2021-12-06] MEDS ORDERED: PALONOSETRON HCL 0.25 MG/5 ML VIAL IVPUSH ONE (10:00)
[2021-12-06] MEDS ORDERED: ACETAMINOPHEN 325 MG TABLET (FP) PO ONE (10:00)
[2021-12-06] MEDS ORDERED: FOSAPREPITANT DIMEGLUMINE 150 MG in SODIUM CHLORIDE 145 ML IVPB ONE (10:00)
[2021-12-06] MEDS ORDERED: diphenhydrAMINE HCL 25 MG CAPSULE (FP) PO ONE (10:00)
[2021-12-06] MEDS ORDERED: DOXOrubicin HCL 50 MG/25 ML VIAL IV ONE (10:30)
[2021-12-06 10:33] LABS: ANISOCYTOSIS 0; HELMET CELLS 0; HOWELL-JOLLY BODIES 0; MACROCYTOSIS 0; OVALOCYTE 0; ROULEAU 0; SICKELED CELLS 0; TARGET CELLS 0; TEAR DROP CELLS 0; TOXIC GRANULATION 0
[2021-12-06] MEDS ORDERED: BLEOMYCIN SULFATE IVPB ONE (10:45)
[2021-12-06] MEDS ORDERED: SODIUM CHLORIDE IVPB ONE ×2 (10:45→11:00)
[2021-12-06] MEDS ORDERED: VINBLASTINE SULFATE IVPB ONE (11:00)
[2021-12-06] MEDS ORDERED: WATER IVPB ONE (11:15)
[2021-12-06] MEDS ORDERED: DEXTROSE 5% IVPB ONE (11:15)
[2021-12-06] MEDS ORDERED: DACARBAZINE IVPB ONE (11:15)
[2021-12-06 14:59] VITALS: BP 164/78; PULSE 80; RESP 18; TEMP 98
== END 2021-12-06 15:17 | disposition home or self-care (01) ==
LOC: JONCCHEMO 08:34
PROVIDERS: ATTEND Internal Medicine Hematology & Oncology
DX: Z51.11 Encounter for antineoplastic chemotherapy (principal); C81.90 Hodgkin lymphoma, unspecified, unspecified site
CPT/HCPCS: 36415; 80048; 80076; 83615; 83735; 84550; 85025; 96361; 96367; 96375; 96411; 96413; J1453; J2469; J9040; J9130

== ENCOUNTER 2021-12-07 10:36 | Day surgery (SDC) | payer OTHER ==
[~2021-12-07 10:36] MED LIST changes: +D5-1/2NS+40 MEQ KCL - 20 MEQ/500 ML INFUS.BAG IV ONE; -MAGNESIUM SULF 50% (8.12 MEQ/2 ML-1 GM VIAL) IVPB ONE; +MAGNESIUM SULFATE IN WATER 2 GM/50 ML IVPB IVPB ONE; +PEGFILGRASTIM-CBQV (UDENYCA) 6 MG/0.6 ML SYRINGE SQ ONE
[2021-12-07] MEDS ORDERED: MAGNESIUM SULFATE IN WATER 2 GM/50 ML IVPB IVPB ONE (11:15)
[2021-12-07 14:02] VITALS: RESP 20; TEMP 98.4
[2021-12-07] MEDS ORDERED: PORTA CATH FLUSH 10 ML IVPUSH PRN (14:07)
[2021-12-07 14:08] VITALS: BP 141/70; PULSE 64
== END 2021-12-07 14:10 | disposition home or self-care (01) ==
LOC: JONCNONCHE 10:36
PROVIDERS: ATTEND Internal Medicine Hematology & Oncology
PROC: 3E043GC Introduction of Other Therapeutic Substance into Central Vein, Percutaneous Approach (ICD-10-PCS; principal; 2021-12-07)
DX: C81.90 Hodgkin lymphoma, unspecified, unspecified site (principal); Z76.89 Persons encountering health services in other specified circumstances
CPT/HCPCS: 96365

== ENCOUNTER 2021-12-08 08:42 | Day surgery (SDC) | payer OTHER ==
[~2021-12-08 08:42] MED LIST changes: -D5-1/2NS+40 MEQ KCL - 20 MEQ/500 ML INFUS.BAG IV ONE; +DEXTROSE 5%-0.45% SALINE 1,000 ML IV SCH; -MAGNESIUM SULFATE IN WATER 2 GM/50 ML IVPB IVPB ONE; -PEGFILGRASTIM-CBQV (UDENYCA) 6 MG/0.6 ML SYRINGE SQ ONE
[2021-12-08] MEDS ORDERED: MAGNESIUM SULFATE IN WATER 2 GM/50 ML IVPB IVPB ONE (10:00)
[2021-12-08] MEDS ORDERED: PEGFILGRASTIM-CBQV (UDENYCA) 6 MG/0.6 ML SYRINGE SQ ONE (10:00)
[2021-12-08 16:22] VITALS: BP 120/60; PULSE 67; RESP 18; TEMP 98
[2021-12-08] MEDS ORDERED: PORTA CATH FLUSH 10 ML IVPUSH PRN (16:22)
== END 2021-12-08 13:30 | disposition home or self-care (01) ==
LOC: JONCCHEMO 08:42
PROVIDERS: ATTEND Internal Medicine Hematology & Oncology
PROC: 3E043GC Introduction of Other Therapeutic Substance into Central Vein, Percutaneous Approach (ICD-10-PCS; principal; 2021-12-08)
DX: C81.90 Hodgkin lymphoma, unspecified, unspecified site (principal); Z76.89 Persons encountering health services in other specified circumstances
CPT/HCPCS: 96361; 96365; 96372; Q5111

== ENCOUNTER 2021-12-16 11:55 | Day surgery (SDC) | payer OTHER ==
[~2021-12-16 11:55] MED LIST changes: -DEXTROSE 5%-0.45% SALINE 1,000 ML IV SCH; +MAGNESIUM 1GM/D5W - 1 GM/100 ML IVPB IVPB SCH
[2021-12-16] MEDS ORDERED: SODIUM CHLORIDE 250 ML IV ONE (12:30)
[2021-12-16] MEDS: MAGNESIUM SULFATE IN WATER 2 GM/50 ML IVPB IVPB SCH ×2 (12:52→13:50)
[2021-12-16] MEDS ORDERED: PORTA CATH FLUSH 10 ML IVPUSH PRN (14:00)
[2021-12-16 15:31] VITALS: BP 118/61; PULSE 77; RESP 20; TEMP 98
== END 2021-12-16 15:05 | disposition home or self-care (01) ==
LOC: JONCNONCHE 11:55
PROVIDERS: ATTEND Internal Medicine Hematology & Oncology
PROC: 3E043GC Introduction of Other Therapeutic Substance into Central Vein, Percutaneous Approach (ICD-10-PCS; principal; 2021-12-16)
DX: C81.90 Hodgkin lymphoma, unspecified, unspecified site (principal); Z76.89 Persons encountering health services in other specified circumstances
CPT/HCPCS: 96365; 96366

== ENCOUNTER 2021-12-21 09:53 | Day surgery (SDC) | payer OTHER ==
[2021-12-21] MEDS ORDERED: MAGNESIUM SULFATE IN WATER 2 GM/50 ML IVPB IVPB ONE (10:00)
[2021-12-21] MEDS ORDERED: diphenhydrAMINE HCL 25 MG CAPSULE (FP) PO ONE (10:00)
[2021-12-21] MEDS ORDERED: ACETAMINOPHEN 325 MG TABLET (FP) PO ONE (10:00)
[2021-12-21] MEDS ORDERED: PALONOSETRON HCL 0.25 MG/5 ML VIAL IVPUSH ONE (10:00)
[2021-12-21] MEDS ORDERED: FOSAPREPITANT DIMEGLUMINE 150 MG in SODIUM CHLORIDE 145 ML IVPB ONE (10:00)
[2021-12-21] MEDS ORDERED: DEXAMETHASONE SODIUM PHOSPHATE 6 MG in SODIUM CHLORIDE 50 ML IVPB ONE (10:00)
[2021-12-21] MEDS ORDERED: SODIUM CHLORIDE 250 ML IV ONE (10:00)
[2021-12-21 10:28] LABS: BASO % 0.5 % (0-2.0); EOS % 2.1 % (0-4.5); HEMATOCRIT 35.8 % (32.4-45.2); HEMOGLOBIN 11.9 GM/dL (10.7-15.3); LYMPH % 13.9 % (8-40); MCH 30.2 pg (25.7-33.7); MCHC 33.3 g/dl (32.0-36.0); MEAN CELL VOLUME 90.7 fl (80-96); MEAN PLT VOLUME 8.4 fl (7.5-11.1); MONO % 8.2 % (3.8-10.2); NEUT % 75.3 % (42.8-82.8); PLATELET COUNT 360 10^3/uL (134-434); RBC 3.95 M/mm3 (3.60-5.2); RDW 15.8 % (11.6-15.6)
[2021-12-21] MEDS ORDERED: DOXOrubicin HCL 50 MG/25 ML VIAL IV ONE (10:30)
[2021-12-21] MEDS ORDERED: BLEOMYCIN SULFATE IVPB ONE (10:45)
[2021-12-21] MEDS ORDERED: SODIUM CHLORIDE IVPB ONE ×2 (10:45→11:00)
[2021-12-21 10:53] LABS: CALCIUM 10.3 mg/dL (8.5-10.1); MAGNESIUM 1.7 mg/dL (1.8-2.4)
[2021-12-21 10:54] LABS: BLOOD UREA NITROGEN 19.6 mg/dL (7-18)
[2021-12-21 10:56] LABS: CREATININE 0.8 mg/dL (0.55-1.3)
[2021-12-21 10:57] LABS: BILIRUBIN,DIRECT 0.1 mg/dL (0.0-0.2)
[2021-12-21 10:59] LABS: BILIRUBIN,TOTAL 0.3 mg/dL (0.2-1)
[2021-12-21] MEDS ORDERED: VINBLASTINE SULFATE IVPB ONE (11:00)
[2021-12-21] MEDS ORDERED: DEXTROSE 5% IVPB ONE (11:15)
[2021-12-21] MEDS ORDERED: WATER IVPB ONE (11:15)
[2021-12-21] MEDS ORDERED: DACARBAZINE IVPB ONE (11:15)
[2021-12-21 11:17] LABS: URIC ACID 4.4 mg/dL (2.6-7.2)
[2021-12-21] MEDS ORDERED: PORTA CATH FLUSH 10 ML IVPUSH PRN (18:05)
[2021-12-21 18:06] VITALS: BP 115/76; PULSE 75; RESP 18; TEMP 98.1
== END 2021-12-21 15:45 | disposition home or self-care (01) ==
LOC: JONCCHEMO 09:53
PROVIDERS: ATTEND Internal Medicine Hematology & Oncology
DX: Z51.11 Encounter for antineoplastic chemotherapy (principal); C81.90 Hodgkin lymphoma, unspecified, unspecified site
CPT/HCPCS: 36415; 80048; 80076; 83615; 83735; 84550; 85025; 96367; 96375; 96411; 96413; J1453; J2469; J9040; J9130

== ENCOUNTER 2021-12-22 09:50 | Day surgery (SDC) | payer OTHER ==
[2021-12-22] MEDS ORDERED: D5-1/2NS+40 MEQ KCL - 20 MEQ/500 ML INFUS.BAG IV ONE (10:00)
[2021-12-22] MEDS ORDERED: MAGNESIUM SULFATE IN WATER 2 GM/50 ML IVPB IVPB ONE (10:00)
[2021-12-22 10:27] VITALS: TEMP 97.8
[2021-12-22] MEDS ORDERED: PORTA CATH FLUSH 10 ML IVPUSH PRN (10:27)
[2021-12-22 12:02] VITALS: BP 140/75; PULSE 62; RESP 18
== END 2021-12-22 14:35 | disposition home or self-care (01) ==
LOC: JONCCHEMO 09:50
PROVIDERS: ATTEND Internal Medicine Hematology & Oncology
PROC: 3E043GC Introduction of Other Therapeutic Substance into Central Vein, Percutaneous Approach (ICD-10-PCS; principal; 2021-12-22)
DX: C81.90 Hodgkin lymphoma, unspecified, unspecified site (principal); Z76.89 Persons encountering health services in other specified circumstances
CPT/HCPCS: 96365

== ENCOUNTER 2021-12-23 09:38 | Day surgery (SDC) | payer OTHER ==
[2021-12-23] MEDS ORDERED: PEGFILGRASTIM-CBQV (UDENYCA) 6 MG/0.6 ML SYRINGE SQ ONE (10:00)
[2021-12-23] MEDS ORDERED: MAGNESIUM SULFATE IN WATER 2 GM/50 ML IVPB IVPB ONE (10:00)
[2021-12-23 16:08] VITALS: RESP 18; TEMP 97.5
[2021-12-23 16:12] VITALS: BP 142/59; PULSE 64
[2021-12-23] MEDS ORDERED: PORTA CATH FLUSH 10 ML IVPUSH PRN (16:16)
== END 2021-12-23 11:25 | disposition home or self-care (01) ==
LOC: JONCCHEMO 09:38
PROVIDERS: ATTEND Internal Medicine Hematology & Oncology
PROC: 3E043GC Introduction of Other Therapeutic Substance into Central Vein, Percutaneous Approach (ICD-10-PCS; principal; 2021-12-23)
PROC: 3E013GC Introduction of Other Therapeutic Substance into Subcutaneous Tissue, Percutaneous Approach (ICD-10-PCS; 2021-12-23)
DX: C85.10 Unspecified B-cell lymphoma, unspecified site (principal); Z76.89 Persons encountering health services in other specified circumstances
CPT/HCPCS: 96365; 96372; Q5111

== ENCOUNTER 2022-01-04 08:55 | Day surgery (SDC) | payer OTHER ==
[2022-01-04] MEDS ORDERED: SODIUM CHLORIDE 250 ML IV ONE (09:00)
[2022-01-04] MEDS ORDERED: MAGNESIUM SULFATE IN WATER 2 GM/50 ML IVPB IVPB ONE (09:00)
[2022-01-04] MEDS ORDERED: DEXAMETHASONE SODIUM PHOSPHATE 6 MG in SODIUM CHLORIDE 50 ML IVPB ONE (09:30)
[2022-01-04] MEDS ORDERED: FOSAPREPITANT DIMEGLUMINE 150 MG in SODIUM CHLORIDE 145 ML IVPB ONE (09:30)
[2022-01-04] MEDS ORDERED: PALONOSETRON HCL 0.25 MG/5 ML VIAL IVPUSH ONE (09:30)
[2022-01-04] MEDS ORDERED: diphenhydrAMINE HCL 25 MG CAPSULE (FP) PO ONE (09:30)
[2022-01-04] MEDS ORDERED: ACETAMINOPHEN 325 MG TABLET (FP) PO ONE (09:30)
[2022-01-04] MEDS ORDERED: DOXOrubicin HCL 50 MG/25 ML VIAL IV ONE (10:00)
[2022-01-04] MEDS ORDERED: SODIUM CHLORIDE IVPB ONE ×2 (10:15→10:30)
[2022-01-04] MEDS ORDERED: BLEOMYCIN SULFATE IVPB ONE (10:15)
[2022-01-04] MEDS ORDERED: VINBLASTINE SULFATE IVPB ONE (10:30)
[2022-01-04] MEDS ORDERED: DEXTROSE 5% IVPB ONE (10:45)
[2022-01-04] MEDS ORDERED: WATER IVPB ONE (10:45)
[2022-01-04] MEDS ORDERED: DACARBAZINE IVPB ONE (10:45)
[2022-01-04 13:15] VITALS: RESP 18
[2022-01-04] MEDS ORDERED: PORTA CATH FLUSH 10 ML IVPUSH PRN ×2 (13:27→14:36)
[2022-01-04 14:32] VITALS: BP 136/71; PULSE 68; TEMP 97.6
== END 2022-01-04 14:33 | disposition home or self-care (01) ==
LOC: JONCCHEMO 08:55
PROVIDERS: ATTEND Internal Medicine Hematology & Oncology
DX: Z51.11 Encounter for antineoplastic chemotherapy (principal); C85.10 Unspecified B-cell lymphoma, unspecified site
CPT/HCPCS: 96367; 96375; 96411; 96413; J1453; J2469; J9040; J9130

== ENCOUNTER 2022-01-05 09:55 | Day surgery (SDC) | payer OTHER ==
[~2022-01-05 09:55] MED LIST changes: +D5-1/2NS+40 MEQ KCL - 20 MEQ/500 ML INFUS.BAG IV ONE; -MAGNESIUM 1GM/D5W - 1 GM/100 ML IVPB IVPB SCH; +MAGNESIUM SULFATE IN WATER 2 GM/50 ML IVPB IVPB ONE
[2022-01-05 16:26] VITALS: BP 141/60; PULSE 63; RESP 20; TEMP 97.8
[2022-01-05] MEDS ORDERED: PORTA CATH FLUSH 10 ML IVPUSH PRN (16:26)
== END 2022-01-05 13:00 | disposition home or self-care (01) ==
LOC: JONCCHEMO 09:55
PROVIDERS: ATTEND Internal Medicine Hematology & Oncology
PROC: 3E043GC Introduction of Other Therapeutic Substance into Central Vein, Percutaneous Approach (ICD-10-PCS; principal; 2022-01-05)
DX: C85.10 Unspecified B-cell lymphoma, unspecified site (principal); Z76.89 Persons encountering health services in other specified circumstances
CPT/HCPCS: 96361; 96365; 96366

== ENCOUNTER 2022-01-06 10:04 | Day surgery (SDC) | payer OTHER ==
[~2022-01-06 10:04] MED LIST changes: -D5-1/2NS+40 MEQ KCL - 20 MEQ/500 ML INFUS.BAG IV ONE; +PEGFILGRASTIM-CBQV (UDENYCA) 6 MG/0.6 ML SYRINGE SQ ONE
[2022-01-06 12:58] VITALS: BP 145/64; PULSE 63; RESP 18; TEMP 97.7
[2022-01-06] MEDS ORDERED: PORTA CATH FLUSH 10 ML IVPUSH PRN (13:03)
== END 2022-01-06 11:20 | disposition home or self-care (01) ==
LOC: JONCCHEMO 10:04
PROVIDERS: ATTEND Internal Medicine Hematology & Oncology
PROC: 3E013GC Introduction of Other Therapeutic Substance into Subcutaneous Tissue, Percutaneous Approach (ICD-10-PCS; principal; 2022-01-06)
PROC: 3E043GC Introduction of Other Therapeutic Substance into Central Vein, Percutaneous Approach (ICD-10-PCS; 2022-01-06)
DX: C85.10 Unspecified B-cell lymphoma, unspecified site (principal); Z76.89 Persons encountering health services in other specified circumstances
CPT/HCPCS: 96365; 96372; Q5111

== ENCOUNTER 2022-01-18 11:33 | Day surgery (SDC) | payer OTHER ==
[2022-01-18] MEDS: MAGNESIUM SULFATE IN WATER 2 GM/50 ML IVPB IVPB SCH ×2 (13:02→13:54)
[2022-01-18 15:31] VITALS: PULSE 64; TEMP 97.9
[2022-01-18 15:35] VITALS: BP 116/53; RESP 18
[2022-01-18] MEDS ORDERED: PORTA CATH FLUSH 10 ML IVPUSH PRN (15:37)
== END 2022-01-18 15:35 | disposition home or self-care (01) ==
LOC: JONCNONCHE 11:33 → JONCCHEMO 11:33 → JONCNONCHE 15:35
PROVIDERS: ATTEND Internal Medicine Hematology & Oncology
PROC: 3E043GC Introduction of Other Therapeutic Substance into Central Vein, Percutaneous Approach (ICD-10-PCS; principal; 2022-01-18)
DX: C85.10 Unspecified B-cell lymphoma, unspecified site (principal); Z76.89 Persons encountering health services in other specified circumstances
CPT/HCPCS: 96365; 96366

== ENCOUNTER 2022-03-24 10:09 | Day surgery (SDC) | payer OTHER ==
[2022-03-24] MEDS: MAGNESIUM SULFATE IN WATER 2 GM/50 ML IVPB IVPB SCH ×2 (10:42→12:20)
[2022-03-24 11:52] LABS: CALCIUM 9.8 mg/dL (8.5-10.1)
[2022-03-24 11:57] LABS: PHOSPHOROUS 3.8 mg/dL (2.5-4.9)
[2022-03-24 17:01] VITALS: BP 122/66; PULSE 66; RESP 20; TEMP 97.5
[2022-03-24] MEDS ORDERED: PORTA CATH FLUSH 10 ML IVPUSH PRN (17:01)
[2022-03-25 08:07] LABS: PARATHYROID HORM INTACT 38 pg/mL (15-65)
[2022-04-02 23:26] LABS: PARATHYROID RELATED PROTEIN < 2.0 pmol/L (.)
== END 2022-03-24 14:00 | disposition home or self-care (01) ==
LOC: JONCCHEMO 10:09
PROVIDERS: ATTEND Internal Medicine Hematology & Oncology
PROC: 3E043GC Introduction of Other Therapeutic Substance into Central Vein, Percutaneous Approach (ICD-10-PCS; principal; 2022-03-24)
DX: C85.10 Unspecified B-cell lymphoma, unspecified site (principal); Z76.89 Persons encountering health services in other specified circumstances
CPT/HCPCS: 36415; 82306; 82310; 82397; 83970; 84100; 96365; 96366

== ENCOUNTER 2022-04-12 12:03 | Day surgery (SDC) | payer OTHER ==
[2022-04-12] MEDS ORDERED: MAGNESIUM SULFATE IN WATER 2 GM/50 ML IVPB IVPB ONE (12:30)
[2022-04-12 15:46] VITALS: RESP 20; TEMP 97.6
[2022-04-12 15:51] VITALS: BP 109/48; PULSE 61
[2022-04-12] MEDS ORDERED: PORTA CATH FLUSH 10 ML IVPUSH PRN (15:51)
== END 2022-04-12 13:45 | disposition home or self-care (01) ==
LOC: JONCNONCHE 12:03
PROVIDERS: ATTEND Internal Medicine Hematology & Oncology
PROC: 3E043GC Introduction of Other Therapeutic Substance into Central Vein, Percutaneous Approach (ICD-10-PCS; principal; 2022-04-12)
DX: C85.10 Unspecified B-cell lymphoma, unspecified site (principal); Z76.89 Persons encountering health services in other specified circumstances
CPT/HCPCS: 96365

== ENCOUNTER 2022-04-13 11:30 | Day surgery (SDC) | payer OTHER ==
[2022-04-13] MEDS ORDERED: MAGNESIUM SULFATE IN WATER 2 GM/50 ML IVPB IVPB ONE (12:00)
[2022-04-13] MEDS ORDERED: PORTA CATH FLUSH 10 ML IVPUSH PRN (17:09)
[2022-04-13 17:10] VITALS: BP 142/78; PULSE 62; RESP 20; TEMP 98.2
== END 2022-04-13 13:00 | disposition home or self-care (01) ==
LOC: JONCNONCHE 11:30
PROVIDERS: ATTEND Internal Medicine Hematology & Oncology
PROC: 3E043GC Introduction of Other Therapeutic Substance into Central Vein, Percutaneous Approach (ICD-10-PCS; principal; 2022-04-13)
DX: C85.10 Unspecified B-cell lymphoma, unspecified site (principal); Z76.89 Persons encountering health services in other specified circumstances
CPT/HCPCS: 96365

== ENCOUNTER 2022-04-27 12:09 | Day surgery (SDC) | payer OTHER ==
[2022-04-27] MEDS: MAGNESIUM SULFATE IN WATER 2 GM/50 ML IVPB IVPB SCH ×2 (12:58→13:55)
[2022-04-27 16:07] VITALS: BP 147/60; PULSE 67; RESP 20; TEMP 97.6
[2022-04-27] MEDS ORDERED: PORTA CATH FLUSH 10 ML IVPUSH PRN (16:07)
== END 2022-04-27 15:15 | disposition home or self-care (01) ==
LOC: JONCNONCHE 12:09
PROVIDERS: ATTEND Internal Medicine Hematology & Oncology
PROC: 3E043GC Introduction of Other Therapeutic Substance into Central Vein, Percutaneous Approach (ICD-10-PCS; principal; 2022-04-27)
DX: C85.10 Unspecified B-cell lymphoma, unspecified site (principal); Z76.89 Persons encountering health services in other specified circumstances
CPT/HCPCS: 96365; 96366

== ENCOUNTER 2022-05-11 09:30 | Day surgery (SDC) | payer OTHER ==
[2022-05-11] MEDS: MAGNESIUM SULFATE IN WATER 2 GM/50 ML IVPB IVPB SCH ×2 (11:05→11:55)
[2022-05-11 13:58] VITALS: BP 141/67; PULSE 72; RESP 18; TEMP 97.7
== END 2022-05-11 13:20 | disposition home or self-care (01) ==
LOC: JONCNONCHE 09:30
PROVIDERS: ATTEND Internal Medicine Hematology & Oncology
PROC: 30243H1 Transfusion of Nonautologous Whole Blood into Central Vein, Percutaneous Approach (ICD-10-PCS; principal; 2022-05-11)
DX: C85.10 Unspecified B-cell lymphoma, unspecified site (principal); Z76.89 Persons encountering health services in other specified circumstances
CPT/HCPCS: 96365; 96366

== ENCOUNTER 2022-05-25 10:28 | Day surgery (SDC) | payer OTHER ==
[2022-05-25] MEDS: MAGNESIUM SULFATE IN WATER 2 GM/50 ML IVPB IVPB SCH ×2 (11:49→12:36)
[2022-05-25 16:54] VITALS: BP 129/70; PULSE 71; RESP 20; TEMP 97
[2022-05-25] MEDS ORDERED: PORTA CATH FLUSH 10 ML IVPUSH PRN (17:00)
== END 2022-05-25 13:00 | disposition home or self-care (01) ==
LOC: JONCNONCHE 10:28
PROVIDERS: ATTEND Internal Medicine Hematology & Oncology
DX: C81.70 Other Hodgkin lymphoma, unspecified site (principal); R79.0 Abnormal level of blood mineral; Z76.89 Persons encountering health services in other specified circumstances
CPT/HCPCS: 96365

== ENCOUNTER 2022-06-08 10:54 | Day surgery (SDC) | payer OTHER ==
[2022-06-08] MEDS: MAGNESIUM SULFATE IN WATER 2 GM/50 ML IVPB IVPB SCH ×2 (11:10→12:08)
[2022-06-08] MEDS: SODIUM CHLORIDE 250 ML IV SCH ×2 (11:10→12:08)
[2022-06-08 15:10] LABS: ALBUMIN 3.6 g/dl (3.4-5.0); CALCIUM 9.5 mg/dL (8.5-10.1); MAGNESIUM 3.1 mg/dL (1.8-2.4)
[2022-06-08 15:11] LABS: BLOOD UREA NITROGEN 25.7 mg/dL (7-18)
[2022-06-08 15:13] LABS: CREATININE 0.8 mg/dL (0.55-1.3)
[2022-06-08 15:15] LABS: BILIRUBIN,TOTAL 0.3 mg/dL (0.2-1); TOT PROT 6.4 g/dl (6.4-8.2)
[2022-06-08 16:29] VITALS: RESP 18; TEMP 97.6
[2022-06-08 16:39] VITALS: BP 131/56; PULSE 58
[2022-06-08] MEDS ORDERED: PORTA CATH FLUSH 10 ML IVPUSH PRN ×2 (16:39→16:41)
== END 2022-06-08 13:55 | disposition home or self-care (01) ==
LOC: JONCNONCHE 10:54
PROVIDERS: ATTEND Internal Medicine Hematology & Oncology
PROC: 3E043GC Introduction of Other Therapeutic Substance into Central Vein, Percutaneous Approach (ICD-10-PCS; principal; 2022-06-08)
DX: R79.0 Abnormal level of blood mineral (principal); C81.90 Hodgkin lymphoma, unspecified, unspecified site
CPT/HCPCS: 36415; 80053; 83735; 96365; 96366

== ENCOUNTER 2022-06-22 11:05 | Day surgery (SDC) | payer OTHER ==
[~2022-06-22 11:05] MED LIST changes: -MAGNESIUM SULFATE IN WATER 2 GM/50 ML IVPB IVPB ONE; +MAGNESIUM SULFATE IVPB ONE; -PEGFILGRASTIM-CBQV (UDENYCA) 6 MG/0.6 ML SYRINGE SQ ONE; +SODIUM CHLORIDE IVPB ONE
[2022-06-22 17:54] VITALS: TEMP 98
[2022-06-22 17:57] VITALS: BP 110/55; PULSE 58; RESP 18
[2022-06-22] MEDS ORDERED: PORTA CATH FLUSH 10 ML IVPUSH PRN (17:57)
== END 2022-06-22 13:45 | disposition home or self-care (01) ==
LOC: JONCNONCHE 11:05
PROVIDERS: ATTEND Internal Medicine Hematology & Oncology
PROC: 3E043GC Introduction of Other Therapeutic Substance into Central Vein, Percutaneous Approach (ICD-10-PCS; principal; 2022-06-22)
DX: R79.0 Abnormal level of blood mineral (principal); C81.90 Hodgkin lymphoma, unspecified, unspecified site
CPT/HCPCS: 96365; 96366

== ENCOUNTER 2022-07-20 10:39 | Day surgery (SDC) | payer OTHER ==
[2022-07-20] MEDS: MAGNESIUM SULFATE IN WATER 2 GM/50 ML IVPB IVPB SCH ×2 (11:46→12:31)
[2022-07-20 16:38] VITALS: TEMP 98.1
[2022-07-20 16:43] VITALS: BP 127/69; PULSE 67; RESP 18
[2022-07-20] MEDS ORDERED: PORTA CATH FLUSH 10 ML IVPUSH PRN (16:43)
== END 2022-07-20 13:40 | disposition home or self-care (01) ==
LOC: JONCNONCHE 10:39 → J7W 10:47 → JONCNONCHE 13:40
PROVIDERS: ATTEND Internal Medicine Hematology & Oncology
PROC: 3E043GC Introduction of Other Therapeutic Substance into Central Vein, Percutaneous Approach (ICD-10-PCS; principal; 2022-07-20)
DX: R79.0 Abnormal level of blood mineral (principal); C81.90 Hodgkin lymphoma, unspecified, unspecified site
CPT/HCPCS: 96365; 96366

== ENCOUNTER 2023-05-06 17:32 | Inpatient (IN) | payer OTHER ==
[2023-05-06] MEDS ORDERED: FAMOTIDINE 20 MG/50 ML IVPB 20 MG/50 ML MG IVPB ONE (18:49)
[2023-05-06] MEDS: FAMOTIDINE 20 MG/50 ML IVPB 20 MG/50 ML MG IVPB ONE (19:01)
[2023-05-06 19:18] LABS: BASO % 0.9 % (0-2.0); EOS % 2.3 % (0-4.5); HEMATOCRIT 38.2 % (32.4-45.2); HEMOGLOBIN 13.1 GM/dL (10.7-15.3); LYMPH % 26.3 % (8-40); MCH 31.3 pg (25.7-33.7); MCHC 34.2 g/dl (32.0-36.0); MEAN CELL VOLUME 91.4 fl (80-96); MEAN PLT VOLUME 8.9 fl (7.5-11.1); NEUT % 62.5 % (42.8-82.8); PLATELET COUNT 253 10^3/uL (134-434); RBC 4.18 M/mm3 (3.60-5.2); RDW 14.2 % (11.6-15.6); WHITE BLOOD COUNT 7.1 K/mm3 (4.0-10.0)
[2023-05-06 19:25] LABS: INR 1.24 (0.83-1.09); PROTHROMBIN TIME (PATIENT) 14.4 SEC (9.7-13.0)
[2023-05-06 19:27] LABS: ACTIVATED PTT 34.1 SECONDS (25.2-36.5)
[2023-05-06 19:43] LABS: POTASSIUM 4.8 mmol/L (3.5-5.1)
[2023-05-06 19:45] LABS: CALCIUM 11.2 mg/dL (8.5-10.1)
[2023-05-06 19:46] LABS: ALBUMIN 4.2 g/dl (3.4-5.0); BLOOD UREA NITROGEN 28.1 mg/dL (7-18); MAGNESIUM 1.4 mg/dL (1.8-2.4)
[2023-05-06 19:50] LABS: TOT PROT 7.2 g/dl (6.4-8.2)
[2023-05-06 19:51] LABS: BILIRUBIN,TOTAL 0.3 mg/dL (0.2-1)
[2023-05-06] MEDS ORDERED: MAGNESIUM SULFATE IN WATER 2 GM/50 ML IVPB IVPB ONE (19:51)
[2023-05-06] MEDS: MAGNESIUM SULF 50% (8.12 MEQ/2 ML-1 GM VIAL) IVPB ONE (19:58)
[2023-05-06] MEDS ORDERED: ASPIRIN 81 MG CHEWABLE TABLETS ONE (20:14)
[2023-05-06] MEDS: ASPIRIN 81 MG CHEWABLE TABLETS PO ONE (20:23)
[2023-05-06] MEDS ORDERED: CLOPIDOGREL BISULFATE 300 MG TABLET PO ONE (20:43)
[2023-05-06] MEDS ORDERED: CLOPIDOGREL BISULFATE 300 MG TABLET ONE (20:51)
[2023-05-06] MEDS: CLOPIDOGREL BISULFATE 300 MG TABLET PO ONE (20:56)
[2023-05-06] MEDS ORDERED: HEPARIN NA (PORCINE) 5,000 UNITS/ML 1ML VIAL IVPUSH PRN ×2 (21:49)
[2023-05-06] MEDS: HEPARIN - 25,000 UNIT in SODIUM CHLORIDE 495 ML IV SCH (23:41)
[2023-05-06] MEDS ORDERED: HEPARIN NA (PORCINE) 5,000 UNITS/ML 1ML VIAL ONE (23:51)
[2023-05-07] MEDS: HEPARIN NA (PORCINE) 5,000 UNITS/ML 1ML VIAL IVPUSH ONE
[2023-05-07] MEDS: HEPARIN SOD,PORK IN 0.45% NACL 25,000 UNITS/500 ML INFUS.BAG IVPB SCH
[2023-05-07 01:37] VITALS: BMI 31.2
[2023-05-07] MEDS ORDERED: NITROGLYCERIN SUBLINGUAL 1/150 0.4 MG TAB SL PRN ×2 (06:15→10:23)
[2023-05-07] MEDS: INSULIN (NOVOLOG) ASPART 100 UNITS/ML 10ML VIAL SQ SCH (07:05)
[2023-05-07] MEDS: NITROGLYCERIN SUBLINGUAL 1/150 0.4 MG TAB SL ONE (07:23)
[2023-05-07] MEDS: NITROGLYCERIN 2% OINTMENT - 1GM PACKET TD ONE (07:23)
[2023-05-07 08:38] LABS: BASO % 0.4 % (0-2.0); EOS % 2.6 % (0-4.5); HEMOGLOBIN 12.9 GM/dL (10.7-15.3); LYMPH % 32.5 % (8-40); MCH 30.9 pg (25.7-33.7); MCHC 33.2 g/dl (32.0-36.0); MEAN CELL VOLUME 93.1 fl (80-96); MEAN PLT VOLUME 8.9 fl (7.5-11.1); MONO % 7.5 % (3.8-10.2); PLATELET COUNT 229 10^3/uL (134-434); RBC 4.19 M/mm3 (3.60-5.2); RDW 14.2 % (11.6-15.6); WHITE BLOOD COUNT 7.7 K/mm3 (4.0-10.0)
[2023-05-07 09:28] LABS: CHOLESTEROL 158 mg/dL (50-200); HDL CHOLESTEROL 43 mg/dL (40-60); LDL CHOLESTEROL (ONLY SJRH) 93 mg/dL (5-100)
[2023-05-07 09:36] LABS: ALBUMIN 4.1 g/dl (3.4-5.0); BILIRUBIN,TOTAL 0.5 mg/dL (0.2-1); BLOOD UREA NITROGEN 22.5 mg/dL (7-18); CALCIUM 10.4 mg/dL (8.5-10.1); CREATININE 0.9 mg/dL (0.55-1.3); MAGNESIUM 1.7 mg/dL (1.8-2.4); PHOSPHOROUS 2.8 mg/dL (2.5-4.9); POTASSIUM 4.8 mmol/L (3.5-5.1)
[2023-05-07] MEDS: CLOPIDOGREL BISULFATE 75 MG TABLET (FP) PO SCH (09:38)
[2023-05-07] MEDS: LISINOPRIL 5 MG TABLET PO SCH (09:38)
[2023-05-07] MEDS: ATENOLOL 50 MG TABLET (FP) PO SCH (09:39)
[2023-05-07] MEDS: ASPIRIN 81 MG CHEWABLE TABLETS PO SCH (09:39)
[2023-05-07] MEDS: ALLOPURINOL 300 MG TABLET (FP) PO SCH (09:39)
[2023-05-07] MEDS ORDERED: PATIENT'S OWN MEDICATION (NON-FORMULARY) (Icosapent Ethyl [Vascepa] 1 GM Capsule) PO SCH (10:00)
[2023-05-07] MEDS ORDERED: MAGNESIUM CL 64 MG TABLET.SA PO SCH (10:00)
[2023-05-07] MEDS: ROSUVASTATIN CA 20 MG TABLET PO SCH (21:53)
[2023-05-07] MEDS ORDERED: PATIENT'S OWN MEDICATION (NON-FORMULARY) (Amiloride Hcl [Amiloride Hcl] 5 MG Tablet) PO SCH (22:00)
[2023-05-07] MEDS ORDERED: ROSUVASTATIN CA 10 MG TABLET PO SCH (22:00)
[2023-05-08 09:09] LABS: INR 1.1 (0.83-1.09); PROTHROMBIN TIME (PATIENT) 12.8 SEC (9.7-13.0)
[2023-05-08 09:24] LABS: POTASSIUM 4.6 mmol/L (3.5-5.1)
[2023-05-08 09:44] LABS: BLOOD UREA NITROGEN 24.9 mg/dL (7-18); CALCIUM 10.4 mg/dL (8.5-10.1); MAGNESIUM 1.6 mg/dL (1.8-2.4)
[2023-05-08 09:47] LABS: CREATININE 0.8 mg/dL (0.55-1.3); PHOSPHOROUS 3.1 mg/dL (2.5-4.9)
[2023-05-08] MEDS ORDERED: PATIENT'S OWN MEDICATION (NON-FORMULARY) (Patiromer Calcium Sorbitex [Veltassa] 8.4 GM Pow PO SCH (10:00)
[2023-05-08 15:28] LABS: INR 1.15 (0.83-1.09); PROTHROMBIN TIME (PATIENT) 13.3 SEC (9.7-13.0)
[2023-05-08 15:31] LABS: ACTIVATED PTT 53.4 SECONDS (25.2-36.5)
[2023-05-09 11:02] LABS: INR 1.1 (0.83-1.09); PROTHROMBIN TIME (PATIENT) 12.7 SEC (9.7-13.0)
[2023-05-09 11:05] LABS: ACTIVATED PTT 34.8 SECONDS (25.2-36.5)
[2023-05-09] MEDS: ENOXAPARIN NA (PORCINE) 80 MG/0.8 ML DISP.SYRIN SQ SCH (11:44)
[2023-05-09 20:02] VITALS: BP 118/54; PULSE 68; RESP 18; TEMP 97.4
== END 2023-05-09 20:02 | disposition short-term general hospital (02) | DRG 281 ==
LOC: JER 17:32 → JERBED 20:32 → OBSVTOIN 22:15 → J4W 05-07 01:20
PROVIDERS: ADMIT Internal Medicine; ATTEND Internal Medicine
DX: I21.4 Non-ST elevation (NSTEMI) myocardial infarction (principal); C85.90 Non-Hodgkin lymphoma, unspecified, unspecified site; I10 Essential (primary) hypertension; E11.9 Type 2 diabetes mellitus without complications; E78.5 Hyperlipidemia, unspecified; I48.0 Paroxysmal atrial fibrillation; E83.42 Hypomagnesemia; K44.9 Diaphragmatic hernia without obstruction or gangrene
CPT/HCPCS: 0241U-QW; 36415; 71046-TC-FY; 80048; 80053; 80061; 82310; 82550; 82962; 83036; 83690; 83735; 83970; 84100; 84443; 84484; 85025; 85610; 85730; 93005; 93010; 93306-TC; 99285-25; G0378; J1644

== ENCOUNTER 2024-11-25 17:28 | Emergency (ER) | payer OTHER ==
[2024-11-25 17:42] VITALS: BP 165/81; PULSE 67; RESP 18; TEMP 97.6; BMI 30.2
[2024-11-25 19:39] LABS: ALK PHOS 71.0 U/L (45-117); CO2 24.0 mmol/L (21-32); CREATININE 0.8 mg/dl (0.6-1.3); GLUCOSE,RANDOM 111.0 mg/dl (74-106); SGOT/AST 14.0 U/L (15-37); SGPT/ALT 8.0 U/L (7-52); TOT PROT 7.2 g/dl (6.4-8.2)
[2024-11-25 22:13] LABS: HCV DIAGNOSTIC IN-HOUSE W/RFLX NON-REACTIVE (NONREACTIVE); HIV INTERPRETATION NEGATIVE (NEGATIVE)
== END 2024-11-25 20:40 | disposition home or self-care (01) ==
LOC: FER 17:28
DX: E83.42 Hypomagnesemia (principal); M79.10 Myalgia, unspecified site
CPT/HCPCS: 36415; 80053; 83735; 86803; 87389; 99283-25